=== PATIENT | female | born 1985 | race Caucasian/White ===

== ENCOUNTER → 2021-03-08 | Outpatient (CLI) | payer OTHER ==
--- NOTE | 2021-03-09 09:04 | REP ---
INDICATION: LEG NUMBNESS, VENOUS INSUFFICIENCY, HX INJURY COMPARISON: None. TECHNIQUE: Mendoza scale and color Doppler evaluation bilateral lower extremity using linear high frequency transducer including reflux evaluation. FINDINGS: Ultrasound examination of the right and left lower extremity deep venous structures from the common femoral vein to the popliteal vein demonstrates normal compressibility flow and wave patterns in response to respiration and augmentation. There is no evidence for deep venous thrombosis. No evidence for reflux through the bilateral deep or superficial venous systems. IMPRESSION: No evidence for deep venous thrombosis. No evidence for reflux disease. <Electronically signed by Estevan Foster > 03/09/21 0900
== END ==
LOC: M RAD 13:23
PROVIDERS: ATTEND Physician Assistant
DX: R20.2 Paresthesia of skin (principal)

== ENCOUNTER 2022-03-12 09:44 | Emergency (ER) | payer OTHER ==
[~2022-03-12] VITALS: Ht 167.6 cm; Wt 68.2 kg
[2022-03-12 09:44] VITALS: BP 179/90
[2022-03-12] MEDS ORDERED: LISI10TA22 PO (10:00)
[2022-03-12] MEDS ORDERED: SERT25TA85 PO (10:00)
[2022-03-12] MEDS ORDERED: CARA1TAB6 PO (19:06)
[2022-03-12] MEDS ORDERED: CHLO125TA PO (19:06)
[2022-03-12] MEDS ORDERED: PROT1TAB2 PO (19:06)
== END 2022-03-12 10:21 | disposition left against medical advice (07) ==
LOC: M ED 09:44
DX: Z53.21 Procedure and treatment not carried out due to patient leaving prior to being seen by health care provider (principal)

== ENCOUNTER 2022-03-12 12:00 | Emergency (ER) | payer OTHER ==
[~2022-03-12] VITALS: Ht 167.6 cm; Wt 68.2 kg
[~2022-03-12 12:00] MED LIST: LISI10TA22 PO; SERT25TA85 PO
[2022-03-12] MEDS ORDERED: ONDANSETRON 4MG/2ML VIAL IV ONE (13:10)
[2022-03-12 13:38] LABS: BASO % 0.3 % (0.0-1.0); HEMATOCRIT 42.4 % (36.0-47.0); HEMOGLOBIN 14.2 g/dl (12.0-15.5); LYMPH % 6.6 % (24.0-44.0); MEAN CORPUSCULAR HEMOGLOBIN 31.8 pg (27.0-33.0); MEAN CORPUSCULAR HGB CONC 33.5 g/dl (32.0-36.5); MEAN CORPUSCULAR VOLUME 95.1 fl (80.0-96.0); MONO # 0.4 10^3/uL (0.0-0.8); MONO % 2.9 % (2.0-8.0); NEUTROPHILS # 13.4 10^3/uL (1.5-8.5); NEUTROPHILS % 89.8 % (36.0-66.0); PLATELET COUNT, AUTOMATED 254 10^3/uL (150-450); RED BLOOD COUNT 4.46 10^6/uL (4.00-5.40); WHITE BLOOD COUNT 14.9 10^3/uL (4.0-10.0)
[2022-03-12] MEDS: MORPHINE 4 MG/ML 1ML VIAL/SYRINGE IV PRN ×2 (13:40→17:56)
[2022-03-12 13:48] LABS: INR 0.92; PROTHROMBIN TIME 12.8 SECONDS (12.7-14.5)
[2022-03-12 13:49] LABS: PARTIAL THROMBOPLASTIN TIME 23.1 SECONDS (25.9-37.0)
[2022-03-12 14:09] LABS: CK-MB VALUE MASS < 1.0 NG/ML (<3.6); CPK CREATINE PHOSPHOKINASE 71 U/L (26-192); MB/CK RELATIVE INDEX 1.41 (< OR =4)
[2022-03-12] MEDS ORDERED: ISOVUE-370 76% 100ML VIAL As Ordered ONE (14:21)
[2022-03-12 14:24] LABS: ALBUMIN 4.5 GM/DL (3.2-5.2); ALT/SGPT 35 U/L (12-78); BILIRUBIN,DIRECT 0.1 MG/DL (0.0-0.2); BILIRUBIN,TOTAL 0.6 MG/DL (0.2-1.0); BLOOD UREA NITROGEN 14 MG/DL (7-18); CARBON DIOXIDE LEVEL 24 MEQ/L (21-32); CHLORIDE LEVEL 106 MEQ/L (98-107); CREATININE FOR GFR 0.81 MG/DL (0.55-1.30); FREE T4 1.11 NG/DL (0.76-1.46); GLOMERULAR FILTRATION RATE > 60.0 (>60); GLUCOSE, FASTING 106 MG/DL (70-100); LIPASE 79 U/L (73-393); NT-PRO BNP 349 PG/ML (<125); POTASSIUM SERUM 3.7 MEQ/L (3.5-5.1); SODIUM LEVEL 139 MEQ/L (136-145); TOTAL PROTEIN 8.8 GM/DL (6.4-8.2)
[2022-03-12] MEDS ORDERED: GI COCKTAIL 50ML BTL(HYOSCYAMINE/MAALOX/LIDOCAINE VISCOUS)(1:3:1) PO ONE (14:50)
[2022-03-12 15:35] VITALS: BP 212/102
[2022-03-12] MEDS ORDERED: CHLORTHALIDONE 12.5MG PER 1/2 TABLET PO ONE (15:35)
[2022-03-12] MEDS ORDERED: PANTOPRAZOLE 40MG VIAL IV ONE (15:35)
[2022-03-12] MEDS ORDERED: SUCRALFATE 1 GM TAB PO ONE (17:30)
[2022-03-12] MEDS ORDERED: METOCLOPRAMIDE INJ 10MG/2ML VIAL (J2765 PER 1) IV ONE (17:30)
[2022-03-12] MEDS ORDERED: CHLO125TA PO (19:06)
[2022-03-12] MEDS ORDERED: PROT1TAB2 PO (19:06)
[2022-03-12] MEDS ORDERED: CARA1TAB6 PO (19:06)
[2022-03-12 19:15] VITALS: BP 130/79
== END 2022-03-12 19:33 | disposition home or self-care (01) ==
LOC: M ED 12:00
DX: K29.70 Gastritis, unspecified, without bleeding (principal); I70.1 Atherosclerosis of renal artery; R91.1 Solitary pulmonary nodule; I10 Essential (primary) hypertension; Z87.891 Personal history of nicotine dependence; Z90.2 Acquired absence of lung [part of]
CPT/HCPCS: 71045; 71275; 74174; 80047; 80048; 80076; 82550; 82553; 83690; 83880; 84439; 84443; 84484; 85025; 85610; 85730; 87486; 87581; 87633; 87798; 93005; 93041; 94760; 96374; 96375; 96376; 99285; C9113; J2270; J2405; J2765; Q9967

== ENCOUNTER 2022-03-20 12:16 | Emergency (ER) | payer OTHER ==
[~2022-03-20] VITALS: Ht 167.6 cm; Wt 64.9 kg
[~2022-03-20 12:16] MED LIST changes: +CARA1TAB6 PO; +CHLO125TA PO; +PROT1TAB2 PO
[2022-03-20] MEDS ORDERED: CILO50TA PO (12:38)
[2022-03-20] MEDS ORDERED: SERT-141 PO (12:38)
[2022-03-20] MEDS ORDERED: NS 1,000 ML IV ONE (14:00)
[2022-03-20 14:33] LABS: BASO % 0.4 % (0.0-1.0); EOS # 0.1 10^3/uL (0.0-0.5); EOS % 0.6 % (0.0-3.0); HEMATOCRIT 40.8 % (36.0-47.0); LYMPH # 2.5 10^3/uL (1.5-5.0); LYMPH % 23.4 % (24.0-44.0); MEAN CORPUSCULAR HEMOGLOBIN 31.7 pg (27.0-33.0); MEAN CORPUSCULAR HGB CONC 34.3 g/dl (32.0-36.5); MEAN CORPUSCULAR VOLUME 92.5 fl (80.0-96.0); MONO # 1.4 10^3/uL (0.0-0.8); MONO % 13.6 % (2.0-8.0); NEUTROPHILS # 6.6 10^3/uL (1.5-8.5); NEUTROPHILS % 61.6 % (36.0-66.0); PLATELET COUNT, AUTOMATED 326 10^3/uL (150-450); RED BLOOD COUNT 4.41 10^6/uL (4.00-5.40); WHITE BLOOD COUNT 10.6 10^3/uL (4.0-10.0)
[2022-03-20 15:04] LABS: HCG, SERUM QUALITATIVE NEGATIVE (NEGATIVE)
[2022-03-20 15:05] LABS: CK-MB VALUE MASS < 1.0 NG/ML (<3.6); CPK CREATINE PHOSPHOKINASE 35 U/L (26-192); MB/CK RELATIVE INDEX 2.86 (< OR =4)
[2022-03-20 15:10] LABS: BLOOD UREA NITROGEN 23 MG/DL (7-18); CALCIUM LEVEL 9.5 MG/DL (8.5-10.1); CARBON DIOXIDE LEVEL 27 MEQ/L (21-32); CHLORIDE LEVEL 94 MEQ/L (98-107); CREATININE FOR GFR 1.31 MG/DL (0.55-1.30); ETHYL ALCOHOL (ETHANOL) < 0.003 % (0.000-0.010); GLOMERULAR FILTRATION RATE 48.4 (>60); GLUCOSE, FASTING 120 MG/DL (70-100); MAGNESIUM LEVEL 2.4 MG/DL (1.8-2.4); POTASSIUM SERUM 3.4 MEQ/L (3.5-5.1); SODIUM LEVEL 130 MEQ/L (136-145)
[2022-03-20 16:56] VITALS: BP 146/76
== END 2022-03-20 16:58 | disposition home or self-care (01) ==
LOC: M ED 12:16
DX: R55 Syncope and collapse (principal); I10 Essential (primary) hypertension; Z79.899 Other long term (current) drug therapy

== ENCOUNTER 2024-05-25 14:42 | Emergency (ER) | payer OTHER ==
[~2024-05-25] VITALS: Ht 167.6 cm; Wt 59.1 kg
[~2024-05-25 14:42] MED LIST changes: +CILO50TA2 PO; +SERT-141 PO
[2024-05-25] MEDS ORDERED: BUSP10TA (14:58)
[2024-05-25] MEDS ORDERED: SERTRALINE (14:58)
[2024-05-25 15:44] VITALS: BP 100/55; TEMP 97.7; O2SAT 100
[2024-05-25] MEDS: NORCO, ANEXSIA 5/325MG TABLET (HYDROcodone/ACETAMINOPHEN) PO ONE (15:44)
[2024-05-25] MEDS ORDERED: HYDR-3713 PO (17:37)
== END 2024-05-25 17:45 | disposition home or self-care (01) ==
LOC: M ED 14:42
DX: S52.591A Other fractures of lower end of right radius, initial encounter for closed fracture (principal); S52.611A Displaced fracture of right ulna styloid process, initial encounter for closed fracture; W09.8XXA Fall on or from other playground equipment, initial encounter; Y92.830 Public park as the place of occurrence of the external cause; Y93.6A Activity, physical games generally associated with school recess, summer camp and children; Y99.8 Other external cause status; I10 Essential (primary) hypertension; F17.200 Nicotine dependence, unspecified, uncomplicated; Z79.899 Other long term (current) drug therapy

== ENCOUNTER → 2024-05-26 | Outpatient (CLI) | payer OTHER ==
[~2024-05-26] MED LIST changes: +BUSP10TA; +HYDR-3713 PO; +SERTRALINE
== END ==
LOC: M SOG 10:27
PROVIDERS: ATTEND Orthopaedic Surgery
DX: S52.611A Displaced fracture of right ulna styloid process, initial encounter for closed fracture (principal); M25.531 Pain in right wrist; Y93.9 Activity, unspecified; Y92.9 Unspecified place or not applicable

== ENCOUNTER → 2024-05-30 | Outpatient (CLI) | payer OTHER | LOC: M PLAIMG 12:26 | PROVIDERS: ATTEND Orthopaedic Surgery | DX: S52.531A Colles' fracture of right radius, initial encounter for closed fracture (principal); S52.611A Displaced fracture of right ulna styloid process, initial encounter for closed fracture; Y93.9 Activity, unspecified; Y92.9 Unspecified place or not applicable ==

== ENCOUNTER → 2024-06-09 | Outpatient (CLI) | payer OTHER | LOC: M PLAIMG 12:29 | PROVIDERS: ATTEND Orthopaedic Surgery | DX: S52.531A Colles' fracture of right radius, initial encounter for closed fracture (principal); S52.611A Displaced fracture of right ulna styloid process, initial encounter for closed fracture; Y93.9 Activity, unspecified; Y92.9 Unspecified place or not applicable ==

== ENCOUNTER → 2024-06-23 | Outpatient (CLI) | payer OTHER | LOC: M SOG 07:58 | PROVIDERS: ATTEND Orthopaedic Surgery | DX: S52.531D Colles' fracture of right radius, subsequent encounter for closed fracture with routine healing (principal) ==

== ENCOUNTER → 2024-07-07 | Outpatient (CLI) | payer OTHER | LOC: M SOG 07:57 | PROVIDERS: ATTEND Orthopaedic Surgery | DX: S52.571D Other intraarticular fracture of lower end of right radius, subsequent encounter for closed fracture with routine healing (principal) ==

== ENCOUNTER → 2024-08-18 | Outpatient (CLI) | payer OTHER | LOC: M SOG 07:27 | PROVIDERS: ATTEND Orthopaedic Surgery | DX: S52.571D Other intraarticular fracture of lower end of right radius, subsequent encounter for closed fracture with routine healing (principal) ==

== ENCOUNTER → 2024-11-19 | Outpatient (CLI) | payer OTHER | LOC: M SOG 07:55 | PROVIDERS: ATTEND Orthopaedic Surgery | DX: M25.631 Stiffness of right wrist, not elsewhere classified (principal); S52.614D Nondisplaced fracture of right ulna styloid process, subsequent encounter for closed fracture with routine healing ==

== ENCOUNTER → 2025-03-03 | Outpatient (CLI) | payer OTHER | LOC: M WHC 09:21 | PROVIDERS: ATTEND Nurse Practitioner Family | DX: Z12.31 Encounter for screening mammogram for malignant neoplasm of breast (principal) ==

== ENCOUNTER → 2025-07-02 | Outpatient (CLI) | payer OTHER | LOC: M RAD 11:02 | PROVIDERS: ATTEND Nurse Practitioner Family | DX: Q27.1 Congenital renal artery stenosis (principal) ==